=== PATIENT | female | born 1960 | race Caucasian/White ===

== ENCOUNTER 2021-11-27 17:06 | Observation (INO) | payer MEDICAID, OTHER ==
[~2021-11-27] VITALS: Ht 175 cm; Wt 90.3 kg
[2021-11-27 17:30] LABS: BASOPHILS # (AUTO) 0.1 10^3/uL (0.0-0.1); BASOPHILS % (AUTO) 1 % (0-10); EOSINOPHILS # (AUTO) 0.8 10^3/uL (0.0-0.3); EOSINOPHILS % (AUTO) 8 % (0-10); HEMATOCRIT 38 % (35-52); LYMPHOCYTES # (AUTO) 2.6 10^3/uL (1.0-4.0); LYMPHOCYTES % (AUTO) 27 % (12-44); MEAN CORPUSCULAR HEMOGLOBIN 29 pg (25-34); MEAN CORPUSCULAR HGB CONC 32 g/dL (32-36); MEAN CORPUSCULAR VOLUME 93 fL (80-99); MONOCYTES # (AUTO) 0.7 10^3/uL (0.0-1.0); MONOCYTES % (AUTO) 8 % (0-12); NEUTROPHILS # (AUTO) 5.5 10^3/uL (1.8-7.8); NEUTROPHILS % (AUTO) 57 % (42-75); PLATELET COUNT 304 10^3/uL (130-400); WHITE BLOOD COUNT 9.6 10^3/uL (4.3-11.0)
--- NOTE | 2021-11-27 17:30 | ED Neurological Problem ---
General Chief Complaint: Neuro-Stroke Like Symptoms Stated Complaint: TWITCHING/SLURRED SPEECH/HEAD PRESSURE History of Present Illness Date Seen by Provider: Nov 27, 2021 Time Seen by Provider: 17:18 Initial Comments 61-year-old female presents to the emergency department via private vehicle for right-sided arm tremor and tingling and leg tremors, tingling. She also endorses some difficulty speaking. Symptoms started at 10 AM yesterday. She woke up at 5:45 AM and was fine until 10 when she had an acute onset of numbness and tingling in her right arm and leg. She also noticed some blurred vision and difficulty speaking during that time. She denies any recent illness including fevers chills chest pain abdominal pain cough or changes in bowel bladder h abits. Throughout the day today she has had "twitches" diffusely mostly on her right side but sometimes on the left as well. She has had several falls related to this. She has had the twitching in the past but the numbness and tingling of her right arm and leg are seemingly new. She has never had the visual symptoms or speech issues in the past either. She has a history of PSVT and bigeminy, no history of atrial fibrillation. No history of strokes. (LANDY YAN DO) Allergies and Home Medications Allergies Coded Allergies: No Known Drug Allergies (Unverified , 11/27/21) Patient Home Medication List Home Medication List Reviewed: Yes (LANDY YAN DO) Aspirin (Aspirin EC) 81 Mg Tablet.dr, 81 MG PO DAILY Prescribed by: MARVIN NATION on 11/28/21 143 Atorvastatin Calcium (Atorvastatin Calcium) 80 Mg Tablet, 80 MG PO DAILY Prescribed by: MARVIN NATION on 11/28/21 143 Fluoxetine HCl (Fluoxetine HCl) 40 Mg Capsule, 80 MG PO DAILY, (Reported) Entered as Reported by: MARVIN NATION on 11/28/211434 Last Action: New Order Hydromorphone HCl (Hydromorphone HCl) 4 Mg Tablet, 4 MG PO Q6H PRN for PAIN- SEVERE (8-10), (Reported) Entered as Reported by: MARVIN NATION on 11/28/211434 Last Action: New Order Insulin Aspart (Novolog Flexpen) 100 Unit/Ml (3 Ml) Solution, 3 UNITS SQ AC Prescribed by: MARVIN NATION on 11/28/211434 Last Action: New Order Insulin Degludec (Tresiba) 100 Unit/Ml Vial, 32 UNIT SQ HS Prescribed by: MARVIN NATION on 11/28/211434 Last Action: New Order Review of Systems Review of Systems Constitutional: no symptoms reported Eyes: Blurred Vision Ears, Nose, Mouth, Throat: no symptoms reported Respiratory: no symptoms reported Cardiovascular: no symptoms reported Gastrointestinal: no symptoms reported Genitourinary: no symptoms reported Musculoskeletal: muscle twitching Skin: no symptoms reported Psychiatric/Neurological: Numbness, Tingling, Weakness Endocrine: No Symptoms Reported Hematologic/Lymphatic: No Symptoms Reported (LANDY YAN DO) Past Qaulkbi-Gyimrv-Ebtqsg Hx Patient Social History Tobacco Use?: No Use of E-Cig and/or Vaping dev: No Substance use?: No Alcohol Use?: No (LANDY YAN DO) Seasonal Allergies Seasonal Allergies: No (LANDY YAN DO) Family Medical History Reviewed Nursing Family Hx (LANDY YAN DO) No Pertinent Family Hx (LANDY YAN DO) Physical Exam Vital Signs Vital Signs - First Documented 11/27/21 17:11 Temp 36.6 Pulse 57 Resp 18 B/P (MAP) 112/77 (89) (NIKKI DORADO) Vital Signs Capillary Refill : (LANDY YAN DO) Height, Weight, BMI Height: '" Weight: lbs. oz. kg; BMI Method: General Appearance: WD/WN, no apparent distress HEENT: normal ENT inspection, TMs normal, pharynx normal Neck: non-tender, full range of motion, supple, normal inspection Respiratory: chest non-tender, lungs clear, normal breath sounds, no respiratory distress, no accessory muscle use Cardiovascular: regular rate, rhythm, no edema, no gallop, no JVD, no murmur Gastrointestinal: normal bowel sounds, non tender, soft, no organomegaly, no pulsatile mass Back: normal inspection, no CVA tenderness, no vertebral tenderness Extremities: normal range of motion, non-tender, normal inspection, no pedal edema, no calf tenderness Neurologic/Psychiatric: manager laboratory II-XII nml as tested, no motor/sensory deficits, alert, normal mood/affect, oriented x 3, other (Patient has a tremor of her right upper extremity and bilateral lower extremities.) Crainal Nerves: normal hearing, PERRL, other (Speech is slightly slowed but otherwise normal) Coordination/Gait: normal finger to nose, negative Romberg's sign Motor/Sensory: no motor deficit, no sensory deficit, no pronator drift Skin: normal color, warm/dry Lymphatic: no adenopathy (LANDY YAN DO) Stroke Onset of Symptoms Date of Onset of Symptoms: Nov 27, 2021 Time of Symptom Onset: 10:00 Onset of Symptoms: Yes (NIKKI DORADO) NIH Stroke Scale Assessment Select: Initial Level of Consciousness-Questions: 0=Answers both month/age (0), LOC Commands: 0=Performs both tasks (0), Gaze: Normal (0), Visual Bañuelos: 0=No visual loss (0), Facial Movement (Facial Paresis): 0=Normal symmetrical mnt (0), Motor Function-Arms Right: 1=Drift (1), Motor Function- Arms Left: 0=No drift (0), Motor Function-Legs Right: 1=Drift (1), Motor Function-Legs Left: 0=No drift (0), Limb Ataxia: 0=Absent (0), Sensory: 0=Normal:no loss (0), Best Language: 0=No aphasia (0), Dysarthria: 1=Mild to moderate loss (1), Extinction & Inattention: 0=No abnormality (0), Total: 3 Stroke Thrombolytic Exclusion Age 18 or Over: Yes Acute intenal hemorrhage: No History of CVA: No Uncontrolled Coagulation Defec: No Intracranial Hemorrhage: No Severe Hypertension: No GI or Bleed: No Subarachnoid Hemorrhage: No Intracranial Neoplasm/Aneurysm: No Oral Anticoagulants: No Surgery or Trauma: No Puncture of Non-Compressible V: No Recent CPR: No Diabetic Hemorrhagic Retinopat: No Organ Biopsy: No Recent Obstetric Delivery: No Glucose: No Significant Hepatic Dysfunctio: No NIH Stoke Scale >22: No Bacterial Endocarditis: No Pericarditis: No Improving Symptoms: No Platelets: No TPA Contraindication: No (NIKKI DORADO) IV - TPa Received IV - TPa Procedure Performed?: No (NIKKI DORADO) Progress/Results/Core Measures Results/Orders Lab Results Laboratory Tests Test 11/27/21 17:20 11/27/21 17:33 Range/Units White Blood Count 9.6 4.3-11.0 10^3/uL Red Blood Count 4.08 3.80-5.11 10^6/uL Hemoglobin 12.0 11.5-16.0 g/dL Hematocrit 38 35-52 % Mean Corpuscular Volume 93 80-99 fL Mean Corpuscular Hemoglobin 29 25-34 pg Mean Corpuscular Hemoglobin Concent 32 32-36 g/dL Red Cell Distribution Width 13.6 10.0-14.5 % Platelet Count 304 130-400 10^3/uL Mean Platelet Volume 10.0 9.0-12.2 fL Immature Granulocyte % (Auto) 0 % Neutrophils (%) (Auto) 57 42-75 % Lymphocytes (%) (Auto) 27 12-44 % Monocytes (%) (Auto) 8 0-12 % Eosinophils (%) (Auto) 8 0-10 % Basophils (%) (Auto) 1 0-10 % Neutrophils # (Auto) 5.5 1.8-7.8 10^3/uL Lymphocytes # (Auto) 2.6 1.0-4.0 10^3/uL Monocytes # (Auto) 0.7 0.0-1.0 10^3/uL Eosinophils # (Auto) 0.8 H 0.0-0.3 10^3/uL Basophils # (Auto) 0.1 0.0-0.1 10^3/uL Immature Granulocyte # (Auto) 0.0 0.0-0.1 10^3/uL Prothrombin Time 12.6 12.2-14.7 SEC INR Comment 0.9 0.8-1.4 Activated Partial Thromboplast Time 32 24-35 SEC Sodium Level 138 135-145 MMOL/L Potassium Level 3.9 3.6-5.0 MMOL/L Chloride Level 101 98-107 MMOL/L Carbon Dioxide Level 25 21-32 MMOL/L Anion Gap 12 5-14 MMOL/L Blood Urea Nitrogen 37 H 7-18 MG/DL Creatinine 1.60 H 0.60-1.30 MG/DL Estimat Glomerular Filtration Rate 37 BUN/Creatinine Ratio 23 Glucose Level 112 H 70-105 MG/DL Calcium Level 9.6 8.5-10.1 MG/DL Corrected Calcium 9.7 8.5-10.1 MG/DL Total Bilirubin 0.4 0.1-1.0 MG/DL Aspartate Amino Transf (AST/SGOT) 19 5-34 U/L Alanine Aminotransferase (ALT/SGPT) 16 0-55 U/L Alkaline Phosphatase 88 40-136 U/L Total Protein 6.8 6.4-8.2 GM/DL Albumin 3.9 3.2-4.5 GM/DL Glucometer 118 H 70-110 MG/DL (NIKKI DORADO) My Orders Orders - NIKKI DORADO Ct Angio Head/Neck (11/27/21 20:47) Ed Iv/Invasive Line Start (11/27/21 20:48) Ns Iv 500 Ml (Sodium Chloride 0.9%) (11/27/21 21:00) Iohexol Injection (Omnipaque 350 Mg/Ml 1 (11/27/21 21:00) Ns (Ivpb) (Sodium Chloride 0.9% Ivpb Bag (11/27/21 21:00) Iohexol Injection (Omnipaque 350 Mg/Ml 1 (11/27/21 21:15) Received Contrast (Hold Metformin- Contr (11/27/21 21:15) Ns (Ivpb) (Sodium Chloride 0.9% Ivpb Bag (11/27/21 21:15) Clopidogrel Tablet (Plavix Tablet) (11/27/21 21:30) Aspirin Chewable Tablet (Baby Aspirin Ch (11/27/21 21:30) (NIKKI DORADO) Medications Given in ED Current Medications Medications Dose Ordered Sig/Mino Route Start Time Stop Time Status Last Admin Dose Admin Aspirin 324 mg ONCE ONCE PO 11/27/21 21:30 11/27/21 21:31 DC 11/27/21 21:31 324 MG Clopidogrel Bisulfate 300 mg ONCE ONCE PO 11/27/21 21:30 11/27/21 21:31 DC 11/27/21 21:31 300 MG Sodium Chloride 500 ml @ 0 mls/hr Q0M ONCE IV 11/27/21 21:00 11/27/21 21:01 DC 11/27/21 21:31 0 MLS/HR (NIKKI DORADO) Vital Signs/I&O 11/27/21 17:11 Temp 36.6 Pulse 57 Resp 18 B/P (MAP) 112/77 (89) (NIKKI DORADO) Progress Progress Note #1: Time: 20:36 Progress Note Assumed care of the patient at shift change. I agree with above documented history and physical exam. The patient still having a slight residual slurred her speech. Her symptoms are improving mildly. NIH was 3 points. Progress Note #2: Time: 20:45 Progress Note Discussed the case with Dr. Fernandes and she agrees that the patient is well outside the window for tPA. She would recommend a CT angiogram just to be safe although she does not feel given the NIH it is very likely that the patient would have a large vessel occlusion. She would recommend loading the patient with 300 mg of Plavix and aspirin 325 mg. Tomorrow she would do 21 days of regular strength aspirin and 81 mg aspirin. After that just monotherapy with as pirin. (NIKKI DORADO) Comment Sinus bradycardia 56 bpm. Normal intervals. Normal axis. No ST or T wave abnormalities. No ectopy. No STEMI. (LANDY YAN DO) Diagnostic Imaging Diagonstic Imaging: CT Plain Films/CT/US/NM/MRI: head Comments [facility]. [place], [place] NAME: DEEPA COOPER MED REC#: [id number] PT STATUS: REG ER : 1960 PHYSICIAN: LANDY YAN DO ADMIT DATE: 11/27/21/ER Signed Date of Exam:11/27/21 CT HEAD WO-R/O STROKE EXAMINATION: CT brain without contrast from 11/27/2021. TECHNIQUE: Multiple contiguous axial images were obtained through the brain without the use of intravenous contrast. Auto Exposure Controls were utilized during the CT exam to meet ALARA standards for radiation dose reduction. INDICATION: Sudden onset of slurred speech and malaise. FINDINGS: There is atrophy, predominantly within the frontal regions bilaterally. No acute hemorrhage or infarct is seen with no mass, mass effect, or midline shift. There is no hydrocephalus. The calvarium appears intact. Paranasal sinuses and mastoid air cells are clear. IMPRESSION: 1. Atrophy, predominantly in the frontal regions with no acute hemorrhage or infarct appreciated. Dictated by: Dictated on workstation # [id number] Dict: 11/27/21 1748 Trans: 11/27/211805 AS6 Interpreted by: RILEY CALDERON MD Electronically signed by: RILEY CALDERON MD 11/27/211805 Reviewed: Reviewed by Me Diagonstic Imaging: Xray Plain Films/CT/US/NM/MRI: chest Comments [facility] [place] NAME: DEEPA COOPER MED REC#: [id number] PT STATUS: REG ER : 1960 PHYSICIAN: LANDY YAN DO ADMIT DATE: 11/27/21/ER Signed Date of Exam:11/27/21 CHEST 1 VIEW, AP/PA ONLY INDICATION: Stroke protocol. Speech slurred. Malaise. EXAMINATION: Chest 11/27/2021 FINDINGS: The cardiomediastinal silhouette is unremarkable. The pulmonary vasculature is within normal limits. The lungs and pleural spaces are clear. IMPRESSION: No evidence of an acute cardiopulmonary process. Dictated by: Dictated on workstation # [id number] Dict: 11/27/21 175 Trans: 11/27/211805 CVB Interpreted by: RILEY CALDERON MD Electronically signed by: RILEY CALDERON MD 11/27/211805 Diagonstic Imaging: CT (a) Plain Films/CT/US/NM/MRI: head (neck) Comments [facility] [place] NAME: DEEPA COOPER MED REC#: [id number] PT STATUS: REG ER : 1960 PHYSICIAN: LANDY YAN DO ADMIT DATE: 11/27/21/ER Signed Date of Exam:11/27/21 CT HEAD WO-R/O STROKE EXAMINATION: CT brain without contrast from 11/27/2021. TECHNIQUE: Multiple contiguous axial images were obtained through the brain without the use of intravenous contrast. Auto Exposure Controls were utilized during the CT exam to meet ALARA standards for radiation dose reduction. INDICATION: Sudden onset of slurred speech and malaise. FINDINGS: There is atrophy, predominantly within the frontal regions bilaterally. No acute hemorrhage or infarct is seen with no mass, mass effect, or midline shift. There is no hydrocephalus. The calvarium appears intact. Paranasal sinuses and mastoid air cells are clear. IMPRESSION: 1. Atrophy, predominantly in the frontal regions with no acute hemorrhage or infarct appreciated. Dictated by: Dictated on workstation # [id number] Dict: 11/27/21 1748 Trans: 11/27/211805 AS6 [id number] Interpreted by: RILEY CALDERON MD Electronically signed by: RILEY CALDERON MD 11/27/211805 Reviewed: Reviewed by Me (NIKKI DORADO) Departure Communication (Admissions) Time/Spoke to Admitting Phy: 21:40 Discussed the case with Dr. Banegas who agrees to observe the patient on med telemetry (NIKKI DORADO) Impression Primary Impression: CVA (cerebral vascular accident) Qualified Codes: I63.9 - Cerebral infarction, unspecified Disposition: ADMITTED INPATIENT Condition: Stable Admissions Decision to Admit Reason: Admit from ER (General) Decision to Admit/Date: Nov 27, 2021 Time/Decision to Admit Time: 21:30 (NIKKI DORADO) Departure-Patient Inst. Scripts Aspirin (Aspirin EC) 81 Mg Tablet. 81 MG PO DAILY, #30 TAB Prov: MARVIN NATION DO 11/28/21 Atorvastatin Calcium (Atorvastatin Calcium) 80 Mg Tablet 80 MG PO DAILY, #30 TAB Prov: MARVIN NATION DO 11/28/21 Insulin Aspart (Novolog Flexpen) 100 Unit/Ml (3 Ml) Solution 3 UNITS SQ AC for 30 Days, EA Prov: MARVIN NATION DO 11/28/21 Insulin Degludec (Tresiba) 100 Unit/Ml Vial 32 UNIT SQ HS for 30 Days, EA Prov: MARVIN NATION DO 11/28/21 LANDY YAN DO Nov 27, 2021 17:30 NIKKI DORADO Nov 27, 2021 20:26
[2021-11-27 17:45] LABS: ALBUMIN 3.9 GM/DL (3.2-4.5); INR 0.9 (0.8-1.4); POTASSIUM 3.9 MMOL/L (3.6-5.0); PROTHROMBIN TIME PATIENT 12.6 SEC (12.2-14.7)
[2021-11-27 17:46] LABS: CALCIUM 9.6 MG/DL (8.5-10.1)
[2021-11-27 17:47] LABS: TOTAL PROTEIN 6.8 GM/DL (6.4-8.2)
[2021-11-27 17:49] LABS: BILIRUBIN,TOTAL 0.4 MG/DL (0.1-1.0)
[2021-11-27 17:51] LABS: CREATININE SERUM 1.6 MG/DL (0.60-1.30)
--- NOTE | 2021-11-27 17:54 | Diagnostic Imaging Report ---
EXAMINATION: CT brain without contrast from 11/27/2021. TECHNIQUE: Multiple contiguous axial images were obtained through the brain without the use of intravenous contrast. Auto Exposure Controls were utilized during the CT exam to meet ALARA standards for radiation dose reduction. INDICATION: Sudden onset of slurred speech and malaise. FINDINGS: There is atrophy, predominantly within the frontal regions bilaterally. No acute hemorrhage or infarct is seen with no mass, mass effect, or midline shift. There is no hydrocephalus. The calvarium appears intact. Paranasal sinuses and mastoid air cells are clear. IMPRESSION: 1. Atrophy, predominantly in the frontal regions with no acute hemorrhage or infarct appreciated. Dictated by: Dictated on workstation # [id number]
--- NOTE | 2021-11-27 17:57 | Diagnostic Imaging Report ---
INDICATION: Stroke protocol. Speech slurred. Malaise. EXAMINATION: Chest 11/27/2021 FINDINGS: The cardiomediastinal silhouette is unremarkable. The pulmonary vasculature is within normal limits. The lungs and pleural spaces are clear. IMPRESSION: No evidence of an acute cardiopulmonary process. Dictated by: Dictated on workstation # [id number]
[2021-11-27] MEDS ORDERED: NS 100 ML (IVPB) BAG IV ONE ×2 (21:00→21:15)
[2021-11-27] MEDS ORDERED: NS IV 500 ML 500 ML IV ONE (21:00)
[2021-11-27] MEDS ORDERED: IOHEXOL 350 MG/ML 100 ML (OMNIPAQUE 350) VIAL IV ONE ×2 (21:00→21:15)
[2021-11-27] MEDS ORDERED: HOLD METFORMIN - RECEIVED CONTRAST 20 ML VIAL IV SCH (21:15)
[2021-11-27] MEDS ORDERED: ASPIRIN 81 MG CHEW (CHILDREN'S ASA) PO ONE (21:30)
[2021-11-27] MEDS ORDERED: CLOPIDOGREL 300 MG (PLAVIX) TABLET PO ONE (21:30)
--- NOTE | 2021-11-27 21:57 | Diagnostic Imaging Report ---
Procedure: CT angiography of the head and CT angiography of the neck with and without contrast. Technique: Contiguous noncontrast images were obtained from the skull base through the vertex. After intravenous contrast administration, helical CT angiography of the neck was performed. Source data was reformatted into 3D MIP projections. Delayed post contrast acquisition was also obtained. Auto Exposure Controls were utilized during the CT exam to meet ALARA standards for radiation dose reduction. Date: November 27, 2021. Indication: 61-year-old female, twitching, slurred speech. Comparison: CT head without contrast November 27, 2021. Findings: The left common carotid artery is patent. The left internal carotid artery has a beaded and tortuous appearance at its proximal aspect. There is no high-grade stenosis of the left internal carotid artery. The left internal carotid artery is patent. The left middle cerebral artery is patent. The left anterior cerebral artery is patent. The right anterior cerebral artery is patent. The right middle cerebral artery is patent. The right internal carotid artery is patent. The right common carotid artery is patent. Left vertebral artery is conventional in origin. There is a somewhat beaded and irregular appearance of the left vertebral artery as it exits the foramen transversarium. The left vertebral artery is patent. The left posterior cerebral artery is patent. The right posterior cerebral artery is patent. The right vertebral artery is patent. The right vertebral artery is conventional in origin. The visualized portions of the lungs are clear. There is no identified abnormal intracranial enhancement. There is no evidence of a venous sinus thrombosis. There are multilevel degenerative changes of the spine. Impression: 1. No identified arterial head or neck large vessel occlusion. 2. Beaded and tortuous appearance of the left proximal internal carotid artery and also of the left vertebral artery as it exits the foramen transversarium. This could be seen with process such as fibromuscular dysplasia. Dictated by: Dictated on workstation # [id number]
[2021-11-28 04:00] VITALS: BP 115/69
[2021-11-28 05:42] VITALS: BP 115/69
[2021-11-28] MEDS ORDERED: ACETAMINOPHEN 325 MG TABLET PO PRN (07:00)
[2021-11-28] MEDS ORDERED: ONDANSETRON 4 MG/2 ML (SDV) Z0FRAN IVP PRN (07:00)
[2021-11-28] MEDS ORDERED: CATHETER FLUSH 10 ML SYR IV PRN (07:00)
[2021-11-28 07:47] LABS: BASOPHILS # (AUTO) 0.1 10^3/uL (0.0-0.1); BASOPHILS % (AUTO) 1 % (0-10); EOSINOPHILS # (AUTO) 0.7 10^3/uL (0.0-0.3); EOSINOPHILS % (AUTO) 9 % (0-10); HEMATOCRIT 38 % (35-52); HEMOGLOBIN 12.3 g/dL (11.5-16.0); LYMPHOCYTES # (AUTO) 2.1 10^3/uL (1.0-4.0); LYMPHOCYTES % (AUTO) 28 % (12-44); MEAN CORPUSCULAR HEMOGLOBIN 30 pg (25-34); MEAN CORPUSCULAR HGB CONC 32 g/dL (32-36); MEAN CORPUSCULAR VOLUME 93 fL (80-99); MEAN PLATELET VOLUME 10.2 fL (9.0-12.2); MONOCYTES # (AUTO) 0.6 10^3/uL (0.0-1.0); MONOCYTES % (AUTO) 8 % (0-12); NEUTROPHILS % (AUTO) 54 % (42-75); PLATELET COUNT 263 10^3/uL (130-400); WHITE BLOOD COUNT 7.4 10^3/uL (4.3-11.0)
[2021-11-28 08:00] VITALS: BP 158/73
[2021-11-28 08:05] LABS: CALCIUM 9.5 MG/DL (8.5-10.1); CREATININE SERUM 0.91 MG/DL (0.60-1.30); POTASSIUM 3.7 MMOL/L (3.6-5.0)
[2021-11-28] MEDS ORDERED: DEXTROSE 50% 50 ML (IMS) SYR ONE (08:15)
[2021-11-28] MEDS ORDERED: DEXTROSE 50% 50 ML (IMS) SYR IV ONE ×2 (08:30→11:15)
[2021-11-28] MEDS ORDERED: DOCUSATE SODIUM 100 MG (COLACE) CAP PO SCH (09:00)
[2021-11-28] MEDS ORDERED: ASPIRIN E.C. 81 MG (ECOTRIN) TAB PO SCH (09:00)
[2021-11-28] MEDS ORDERED: ASPIRIN 325 MG (5 GR) TABLET PO SCH (09:00)
--- NOTE | 2021-11-28 10:36 | Speech Therapy Progress Note ---
Therapy Progress Note Speech pathology received the consultation, reviewed the patient's medical chart and contacted the RN. At this time, the patient is NPO. Per scanned order, the patient should remain NPO pending "passing Dysphagia Screening." The RN stated he was not aware if the RN Dysphagia Screening had been completed but does not believe one was documented. If the patient fails the RN Dysphagia Screen or the physician has requested a formal clinical bedside swallowing evaluation, ST will proceed with oropharyngeal swallowing evaluation. The ST shared she will be present on the acute floor at approximately 1230 or later. RN verbalized comprehension. LANDRY PIERSON Nov 28, 2021 10:36
--- NOTE | 2021-11-28 10:43 | Physical Therapy Evaluation ---
PT Evaluation-General Medical Diagnosis Admission Date Nov 27, 2021 at 21:40 Medical Diagnosis: CVA Onset Date: Nov 27, 2021 Therapy Diagnosis Therapy Diagnosis: impaired mobility Precautions Precautions/Isolations: Standard Precautions Referral Physician: Makenzie Reason for Referral: Evaluation/Treatment Medical History Pertinent Medical History: DM Current History ER secondary to right side numbness/tingling and LE tremor/slurred speech Reviewed History: Yes Social History Home: Single Level Current Living Status: Spouse Entry Into Home: Stairs With Railing PT Steps Into Home: 4 PT Steps Inside Home: 3 Prior Prior Level of Function SCALE: Activities may be completed with or without assistive devices. 9-Xwfzqalajl-evraxkz completes the activity by him/herself with no assistance from a helper. 5-Set-up or Clean-up Assistance-helper sets up or cleans up; patient completes activity. [place] assists only prior to or following the activity. 4-Supervision or Touching Assistance-helper provides verbal cues and/or touching/steadying and/or contact guard assistance as patient completes activity. Assistance may be provided throughout the activity or intermittently. 3-Partial/Moderate Assistance-helper does LESS THAN HALF the effort. [place] lifts, holds or supports trunk or limbs, but provides less than half the effort. 2-Substantial/Maximal Assistance-helper does MORE THAN HALF the effort. [place] lifts or holds trunk or limbs and provides more than half the effort. 6-Fqclrxaff-teyvep does ALL the effort. Patient does none of the effort to complete the activity. Or, the assistance of 2 or more helpers is required for the patient to complete the activity. If activity was not attempted, code reason: 7-Patient Refused. 9-Not Applicable-not attempted and the patient did not perform the activity before the current illness, exacerbation or injury. 10-Not Attempted due to Environmental Limitations-(lack of equipment, weather restraints, etc.). 88-Not Attempted due to Medical Conditions or Safety Concerns. Bed Mobility: 6 Transfers (B,C,W/C): 6 Gait: 6 Stairs: 6 Indoor Mobility (Ambulation): Independent Stairs: Independent Prior Devices Use: Walker PT Evaluation-Current Subjective Patient was up independently in room upon PT arrival. Patient states, "I feel like I'm where I was before and I just want to go home." RN notified. Objective Patient Orientation: Normal For Age ROM/Strength ROM Lower Extremities bilateral LE WFL Strength Lower Extremities 4-/5 grossly bilateral LE all planes Integumentary/Posture Bowel Incontinence: No Bladder Incontinence: No Posture WFL Neuromuscular (Tone, Coordination, Reflexes) slightly diminished coordination due to inactivity and, per patient, multiple surgeries. Sensory Vision: Wears Glasses Hearing: Functional Transfers Lying to Sitting/Side of Bed(Q: 6 Sit to Stand (QC): 6 Chair/Tph-xv-Ujywa Xfer(QC): 6 Gait Mode of Locomotion: Walk Anticipated Mode of Locomotion: Walk Walk 10 feet (QC): 5 Walk 50 ft with 2 Turns(QC): 5 Walk 150 ft (QC): 5 Distance: 200' Gait Assistive Device: FWW Comments/Gait Description noted right LE slight lag (patient reports this is normal for her) Stairs #of Steps: 4 1 Step (curb) (QC): 4 4 Steps (QC): 4 Balance Sitting Static: Normal Sitting Dynamic: Normal Standing Static: Fair Standing Dynamic: Fair Assessment/Needs 61 y.o. female, is currently at [facility] with all gross motor skills and has declined continued PT intervention. Patient continues to state she want to go home. SW and RN notified. Rehab Potential: Fair PT Plan Treatment/Plan Treatment Plan: Discontinue PT Treatment Duration: Nov 28, 2021 Frequency: 1 time per week Estimated Hrs Per Day: .25 hour per day Patient and/or Family Agrees t: Yes Discharge Recommendations Therapy Discharge Recommendati: Home & Family Time/GCodes Time In: 1016 Time Out: 1030 Total Billed Treatment Time: 14 Total Billed Treatment 1 visit [facility] 14 min GEOVANNI WATERMAN PT Nov 28, 2021 10:43
[2021-11-28] MEDS ORDERED: inSUlin ASPART (NovoLOG) 1 UNIT/0.01 ML (CHARGE PER UNIT) SC SCH (11:00)
[2021-11-28] MEDS ORDERED: DEXTROSE 10% IV SOLUTION 1,000 ML IV SCH (11:30)
--- NOTE | 2021-11-28 11:57 | Occ Therapy Progress Note ---
Therapy Progress Note Pt up in recliner, upon OT arrival pt states "I want to go home". OT introduced self and purpose/benefits of OT. Pt verbalized understanding, but indicates she is at her PLOF, independent with toileting and dressing tasks. Per PT report, pt independent with mobility using FWW. Pt feels as though she is at PLOF and has no further concerns with self care tasks.OT informed pt if concerns arise, then to notify nurse and have new OT orders sent. No skilled OT services indicated at this time, d/c from OT. 1, visit [facility]IR[place] CONTRERAS OT Nov 28, 2021 11:57
[2021-11-28 12:00] VITALS: BP 143/79
--- NOTE | 2021-11-28 13:06 | Short Stay Summary-Hospitalist ---
LUIS FERNANDO REARDON 11/28/21 1306: History of Present Illness HPI/Chief Complaint Patient is a 61 y/o F with history of fibromyalgia and chronic pain, DM type 2, and arthritis who presents for some right sided weakness and tingling in her hands onset 1 day ago. Patient reports that she was at home when she suddenly felt some right sided weakness and was unable to keep her balance. She reports that tingling of the hands is something that happens often for her due to her chronic pain and carpal tunnel history. She also reports she has had extensive back surgery before and believes that may be contributing to her neurologic symptoms at present. CT Angio of the head showed no identified arterial head or neck large vessel occlusion as well as beaded and tortuous appearance of the left proximal internal carotid artery and also of the left vertebral artery as it exits the foramen transversarium. This could be seen with process such as fibromuscular dysplasia. Glucometer today showed some low blood sugars at 46, and 57 but patient states this happens often is somewhat normal for her. Patient denies any other complaints at this time. Source: patient Date Seen 11/28/21 Time Seen by a Provider: 12:58 Attending Physician No,Local Physician PCP Admitting Physician: Frances Banegas MD Attending Physician: Monica Howard DO Referring Physician Date of Admission Nov 27, 2021 at 21:40 Home Medications & Allergies Home Medications Reviewed patient Home Medication Reconciliation performed by pharmacy medication reconciliations optical engineering technician and/or nursing. Patients Allergies have been reviewed. Allergies Allergies Coded Allergies No Known Drug Allergies (Unverified11/27/21) Past Medical/Social/Family Hx Patient Social History Tobacco Use?: No Use of E-Cig and/or Vaping dev: No Substance use?: No Alcohol Use?: No Pt stated abuse/neglect: No Immunizations Up To Date Influenza Vaccine Up-to-Date: No; Not Current First/Initial COVID19 Vaccinat: 2020 Second COVID19 Vaccination Kaushal: 2020 Tetanus Booster (TDap): Less Than 5 Years Current Status status: No status: No Advance Directives: No Communicates: Verbally Primary Language: Swazi Preferred Spoken Language: Swazi Is interpretation needed?: No Sensory deficits: Vision impairment Implanted or Applied Medical D: None Review of Systems Constitutional: No chills, No fever; weakness EENTM: No hearing loss, No blurred vision Respiratory: cough; No short of breath Cardiovascular: No chest pain, No edema Gastrointestinal: No abdominal pain Musculoskeletal: back pain, joint pain, muscle twitching, muscle weakness Skin: No change in color, No change in hair/nails Psychiatric/Neurological: Denies Anxiety, Denies Depressed Physical Exam Physical Exam Vital Signs Vital Signs - First Documented 11/27/21 11/28/21 17:11 01:33 Temp 36.6 Pulse 57 Resp 18 B/P (MAP) 112/77 (89) Pulse Ox 94 O2 Delivery Room Air Capillary Refill : Height, Weight, BMI Height: '" Weight: lbs. oz. kg; 29.48 BMI Method: General Appearance: No Apparent Distress, WD/WN HEENT: PERRL/EOMI, Moist Mucous Membranes Neck: Non Tender, Supple Respiratory: Chest Non Tender, No Accessory Muscle Use, No Respiratory Distress Cardiovascular: No Edema, No JVD Gastrointestinal: Non Tender, Soft Rectal: Deferred Extremity: Non Tender, No Calf Tenderness Neurologic/Psychiatric: Alert, Oriented x3, Normal Mood/Affect, Motor Weakness Skin: Normal Color, Warm/Dry Lymphatic: No Adenopathy Results Results/Procedures Labs Laboratory Tests 11/27/21 17:20 11/28/21 07:37 Patient resulted labs reviewed. Short Stay Diagnosis Discharge Diagnosis-Short Stay Admission Diagnosis Motor Weakness Final Discharge Diagnosis 1. Motor Weakness 2. Hypoglycemia 3. Non-Insulin Dependent Diabetes Mellitus 4. Chronic Pain due to Fibromyalgia Conclusion Plan 1. Motor Weakness Was seen today by PT and OT, feels as though she is able to go home now. Will get echocardiogram and Carotid artery US to rule out CVA. Patient has a phobia of MRI so arrange for outpatient evaluation. 2. Hypoglycemia Continue home medications for glucose control. 3. Non-Insulin Dependent Diabetes Mellitus Continue diabetes management at home. 4. Chronic Pain due to Fibromyalgia Patient will be discharged home for further outpatient workup of her symptoms. Clinical Quality Measures Stroke: Date of last known well: Nov 27, 2021 Time of last known well: 10:00 MONICA HOWARD DO 11/29/21 0617: History of Present Illness HPI/Chief Complaint CC: Right sided weakness HPI: This is a 61 yr old female who presented with right sided weakness. She was found to have findings consistent and concerning for some sort of neurological deficit. She doesn't want to get an MRI today because of severe claustrophobia even with sedation offered. Echocardiogram and carotid ultrasound will be completed and she will have close follow up with the outpatient setting since all of her symptoms have resolved. She does have a history of spine disease and likely this is a neurological deficit due to spine disease. Source: patient Past Medical/Social/Family Hx Patient Social History Marrital Status: Smoking Status: Current Everyday Smoker Review of Systems Constitutional: see HPI Physical Exam Physical Exam General Appearance: No Apparent Distress, WD/WN Eyes: Bilateral Eye Normal Inspection, Bilateral Eye PERRL HEENT: PERRL/EOMI, TMs Normal, Normal ENT Inspection, Pharynx Normal Neck: Full Range of Motion, Normal Inspection, Non Tender, Supple, Carotid Bruit Respiratory: Chest Non Tender, Lungs Clear, Normal Breath Sounds, No Accessory Muscle Use, No Respiratory Distress Cardiovascular: Regular Rate, Rhythm, No Edema, No Gallop, No JVD, No Murmur, Normal Peripheral Pulses Gastrointestinal: Normal Bowel Sounds, No Organomegaly, No Pulsatile Mass, Non Tender, Soft Back: Normal Inspection, No CVA Tenderness, No Vertebral Tenderness Extremity: Normal Capillary Refill, Normal Inspection, Normal Range of Motion, Non Tender, No Calf Tenderness, No Pedal Edema Neurologic/Psychiatric: Alert, Oriented x3, No Motor/Sensory Deficits, Normal Mood/Affect Skin: Normal Color, Warm/Dry Lymphatic: No Adenopathy Short Stay Diagnosis Discharge Diagnosis-Short Stay Admission Diagnosis Neuro deficit now resolved Final Discharge Diagnosis Neuro deficit now resolved Conclusion Plan Declines MRI Reviewed ECHO and carotid Supervisory-Addendum Brief Verification & Attestation Participated in pt care: history, MDM, physical Personally performed: exam, history, MDM, supervision of care Care discussed with: Medical Student Procedures: n/a Results interpretation: Verified all documentation Verification and Attestation of Medical Student E/M Service A medical student performed and documented this service in my presence. I reviewed and verified all information documented by the medical student and made modifications to such information, when appropriate. I personally performed the physical exam and medical decision making. Monica Howard, Nov 29, 2021,06:16 LUIS FERNANDO REARDON Nov 28, 2021 13:06 MONICA HOWARD DO Nov 29, 2021 06:17
--- NOTE | 2021-11-28 13:57 | Speech Therapy Progress Note ---
Therapy Progress Note Speech pathology received the consultation, reviewed the chart, and presented to the room at 1325. The patient stated her oropharyngeal swallowing, cognition, speech, and language are currently at baseline and does not report any difficulties or concerns at this time. Per patient, "I always take small sips but that's always been what I've done." The patient independently consumed drinks (straw) of thin liquid for the clinician without overt s/s of suspected aspiration demonstrated. The patient was encouraged to monitor her symptoms and contact staff with any changes to the above areas. The patient verbalized comprehension. ST to sign off of services at this time. 7 minutes (no charge) LANDRY PIERSON Nov 28, 2021 13:57
[2021-11-28] MEDS ORDERED: CATHETER FLUSH 10 ML SYR IV SCH (14:00)
[2021-11-28] MEDS ORDERED: INSU100I14 SQ (14:35)
[2021-11-28] MEDS ORDERED: INSU100V37 SQ (14:35)
[2021-11-28] MEDS ORDERED: FLUO40CA PO (14:35)
[2021-11-28] MEDS ORDERED: HYDR4TAB PO (14:35)
[2021-11-28] MEDS ORDERED: ASPI-1238 PO (14:36)
[2021-11-28] MEDS ORDERED: ATOR80TA76 PO (14:36)
[2021-11-28 15:50] VITALS: BP 143/79
--- NOTE | 2021-11-28 16:17 | Diagnostic Imaging Report ---
PROCEDURE: US carotid duplex, bilateral. TECHNIQUE: Multiple real-time grayscale images were obtained over the carotid arteries in various projections, bilaterally. Additional spectral analysis and color Doppler duplex images were also obtained. INDICATION: CVA Parameters based on the consensus panel Caballero-Scale and Doppler ultrasound criteria published January 2003, Radiology, Volume 229. DOPPLER (peak systolic velocity M/S Right Left CCA .90 .82 ICA Proximal .54 .62 ICA Mid .99 1.24 ICA Distal 1.17 .66 RATIO 1.30 1.51 ECA 1.29 .68 VERT .46 .58 There is plaque seen within the bilateral carotid bulbs and bifurcations. Waveforms are normal. Normal antegrade flow within both vertebral arteries. IMPRESSION: Less than 50% stenosis of the bilateral internal carotid arteries by velocity and ratio criteria. Dictated by: Dictated on workstation # [id number]
== END 2021-11-28 14:32 | disposition home health service (06) ==
LOC: ER 17:11 → 4TH 21:40
PROVIDERS: ADMIT Family Medicine; ATTEND Internal Medicine
DX: M62.81 Muscle weakness (generalized) (principal); E11.649 Type 2 diabetes mellitus with hypoglycemia without coma; G89.29 Other chronic pain; M79.7 Fibromyalgia; I63.9 Cerebral infarction, unspecified; Z79.4 Long term (current) use of insulin; Z79.899 Other long term (current) drug therapy
CPT/HCPCS: 70450; 70496; 70498; 71045; 80048; 80053; 80061; 82947 ×2; 85025 ×2; 85610; 85730; 93005; 93041; 93306; 93880; 96375; 97162; 99284; G0378; 36415

== ENCOUNTER → 2021-12-17 | Outpatient (CLI) | payer MEDICARE, OTHER ==
[~2021-12-17] MED LIST: ASPI-1238 PO; ATOR80TA76 PO; FLUO40CA PO; HYDR4TAB PO; INSU100I14 SQ; INSU100V37 SQ
--- NOTE | 2021-12-17 13:01 | Diagnostic Imaging Report ---
Clinical indication: Patient with transient cerebral ischemic attack. EXAM: Axial CT scan of the brain performed without IV contrast with sagittal and coronal reformatted images. Auto Exposure Controls were utilized during the CT exam to meet ALARA standards for radiation dose reduction. COMPARISON: Head CT without contrast and CT angiogram of head/neck dated 11/27/2021.. FINDINGS: There is no evidence of acute cerebral infarct, intracranial hemorrhage, or gross mass effect. Stable brain parenchymal volume loss involving the frontal lobes. The brain parenchymal volume appears appropriate for patient's age. There is normal franco-white matter distinction. There is no significant midline shift or herniation. There is no evidence of hydrocephalus. The basal cisterns are unremarkable. The skull, extracranial soft tissue, and orbits are unremarkable. The paranasal sinuses are unremarkable. Temporal bones show no significant abnormality. IMPRESSION: Stable CT scan of the brain with no evidence of acute intracranial process. Dictated by: Dictated on workstation # [id number]
== END ==
LOC: RAD 12:45
PROVIDERS: ATTEND Internal Medicine Cardiovascular Disease
DX: G45.9 Transient cerebral ischemic attack, unspecified (principal)
CPT/HCPCS: 70450

== ENCOUNTER → 2023-01-27 | Day surgery (SDC) | payer MEDICARE ==
[~2023-01-27] VITALS: Ht 170.2 cm; Wt 71.6 kg
[~2023-01-27] MED LIST changes: +LIDOCAINE 1% INJ 20 ML VIAL INJ ONE
--- NOTE | 2023-01-27 11:48 | Implantation of Loop Monitor ---
Implant of Loop Monitior IMPLANTATION OF LOOP MONITOR REPORT DATE OF PROCEDURE: 01/27/23 PREOP DIAGNOSIS: Paroxysmal atrial fibrillation POSTOP DIAGNOSIS: Paroxysmal atrial fibrillation PROCEDURE DETAILS: The patient is a 62 female with history of paroxysmal atrial fibrillation requiring long-term surveillance. Therefore implantable loop recorder was discussed and agreed with the patient. Informed consent was taken. All risks and complications were discussed at length. The patient was draped and prepped in the usual sterile fashion. Local anesthesia was lidocaine, which was given in the substernal area close to the 4th intercostal space. Loop monitor [employer] with serial number [id number] was implanted according to the protocol. Steri- Strips were placed at the end of the procedure. There were no complications and the patient tolerated the procedure well. ANESTHESIA: Local anesthesia with lidocaine. COMPLICATIONS: None CONTRAST/FLUOROSCOPY: None CONCLUSION: Successful implantation of loop monitor with no complication FINAL DIAGNOSIS: Paroxysmal atrial fibrillation Paroxysmal atrial tachycardia Palpitation Hypertension ZENA BROWN MD Jan 27, 2023 11:48
== END | disposition home or self-care (01) ==
LOC: CATH 10:50 → CARD 10:50 → EDSTATUS 02-04 13:30
PROVIDERS: ATTEND Internal Medicine Cardiovascular Disease
DX: I48.0 Paroxysmal atrial fibrillation (principal); I25.10 Atherosclerotic heart disease of native coronary artery without angina pectoris; I47.10 Supraventricular tachycardia, unspecified; I10 Essential (primary) hypertension; E78.2 Mixed hyperlipidemia; I65.23 Occlusion and stenosis of bilateral carotid arteries; E11.9 Type 2 diabetes mellitus without complications; E03.9 Hypothyroidism, unspecified; E66.9 Obesity, unspecified; Z68.24 Body mass index [BMI] 24.0-24.9, adult; Z86.73 Personal history of transient ischemic attack (TIA), and cerebral infarction without residual deficits; Z79.82 Long term (current) use of aspirin; Z79.899 Other long term (current) drug therapy; Z79.84 Long term (current) use of oral hypoglycemic drugs; Z79.890 Hormone replacement therapy; Z79.4 Long term (current) use of insulin
CPT/HCPCS: 33285; C1764

== ENCOUNTER 2023-02-24 15:50 | Outpatient (CLI) | payer MEDICARE ==
[~2023-02-24] VITALS: Ht 170.2 cm; Wt 76.0 kg
[~2023-02-24 15:50] MED LIST changes: -LIDOCAINE 1% INJ 20 ML VIAL INJ ONE
[2023-02-24] MEDS ORDERED: MELO15TA39 PO (17:55)
[2023-02-24] MEDS ORDERED: METF-478 PO (17:55)
[2023-02-24] MEDS ORDERED: QUET100T PO (17:55)
[2023-02-24] MEDS ORDERED: LISI20TA26 PO (17:55)
[2023-02-24] MEDS ORDERED: INSU100V6 SQ (17:55)
[2023-02-24] MEDS ORDERED: PREG100C PO (17:55)
[2023-02-24] MEDS ORDERED: DULA4.5P SQ (17:55)
[2023-02-24] MEDS ORDERED: ONDA-106 PO (17:55)
[2023-02-24] MEDS ORDERED: ACET325T49 PO (17:55)
[2023-02-24] MEDS ORDERED: LEVO75CA5 PO (17:55)
[2023-02-24] MEDS ORDERED: APIX5TAB PO (17:55)
[2023-02-24] MEDS ORDERED: ORPH100T3 PO (17:55)
[2023-02-24] MEDS ORDERED: GLIM1TAB4 PO (17:55)
[2023-02-24] MEDS ORDERED: LOVA40TA2 PO (17:55)
[2023-02-24] MEDS ORDERED: METO50TA7 PO (17:55)
[2023-02-25] MEDS ORDERED: LNZ600T PO (18:33)
[2023-02-25] MEDS ORDERED: FLUC100T PO (18:33)
== END 2023-02-24 18:23 | disposition home or self-care (01) ==
LOC: PREOP 15:50
PROVIDERS: ATTEND Surgery
DX: Z01.818 Encounter for other preprocedural examination (principal)

== ENCOUNTER 2023-02-25 12:59 | Day surgery (SDC) | payer MEDICARE ==
[~2023-02-25] VITALS: Ht 170.2 cm; Wt 76.0 kg
[2023-02-25] VITALS (12 sets, daily range): BP systolic 116–158; BP diastolic 54–90
[~2023-02-25 12:59] MED LIST changes: +ACET325T49 PO; +APIX5TAB PO; +DULA4.5P SQ; +GLIM1TAB4 PO; +INSU100V6 SQ; +LEVO75CA5 PO; +LISI20TA26 PO; +LOVA40TA2 PO; +MELO15TA39 PO; +METF-478 PO; +METO50TA7 PO; +ONDA-106 PO; +ORPH100T3 PO; +PREG100C PO; +QUET100T PO
[2023-02-25] MEDS ORDERED: CLINDAMYCIN 600 MG/50 ML IVPB 50 ML IV NR (13:15)
--- NOTE | 2023-02-25 13:17 | Progress Note-Pre Operative ---
Pre-Operative Progress Note Date H&P Reviewed: Feb 25, 2023 Time H&P Reviewed: 13:15 History & Physical: H&P Reviewed, Patient Examed, No changes noted Pre-Operative Diagnosis: Left elbow complex abscess SUBHASH ALEJANDRO APRN Feb 25, 2023 13:16
--- NOTE | 2023-02-25 13:20 | Discharge Inst-Surgical ---
D/C Lap Instructions-KIDO Reconcile Patient Problems Problems Reviewed?: Yes New, Converted, or Re-Newed RX: Other Follow Up Appt in 2 weeks Activity as tolerated No driving for 24 hours No driving while on pain medications Regular Diet Symptoms to Report: Fever over 101 degree F, Nausea/Vomiting Infection Signs and Symptoms to report: Increased redness, Foul odor of wound, Increased drainage Bathing instructions: May shower Operative Area Clean/Dry; Keep incision clean/dry If any problems/questions: Contact your physician or go to Emergency Room SUBHASH ALEJANDRO APRN Feb 25, 2023 13:20
[2023-02-25] MEDS ORDERED: ONDANSETRON INJECTION 4 MG/2 ML (SDV) IVP PRN ×2 (13:30→17:00)
[2023-02-25] MEDS ORDERED: ACETAMINOPHEN 325 MG TABLET PO PRN (13:30)
[2023-02-25] MEDS ORDERED: fentaNYL INJECTION 100 MCG/2 ML VIAL IVP PRN (13:30)
[2023-02-25] MEDS ORDERED: HYDROmorphone 2 MG TABLET PO PRN (13:30)
[2023-02-25] MEDS ORDERED: LIDOCAINE 2% w/EPI 1:100,000 20 ML VIAL ONE ×2 (13:36→15:45)
[2023-02-25] MEDS ORDERED: CLINDAMYCIN 600 MG/50 ML IVPB 50 ML IV ONE (14:00)
[2023-02-25] MEDS ORDERED: MIDAZOLAM INJ 2 MG/2 ML VIAL IVP ONE (14:00)
[2023-02-25] MEDS ORDERED: MIDAZOLAM INJ 2 MG/2 ML VIAL ONE ×2 (14:01→14:37)
[2023-02-25] MEDS ORDERED: LACTATED RINGERS 1,000 ML 1,000 ML IV PRN (14:15)
[2023-02-25] MEDS ORDERED: proPOfol INJECTION 200 MG/20 ML VIAL IV ONE (14:37)
[2023-02-25] MEDS ORDERED: LIDOCAINE PF 2% 5 ML VIAL ONE (14:37)
[2023-02-25] MEDS ORDERED: fentaNYL INJECTION 100 MCG/2 ML VIAL ONE ×2 (14:37→17:35)
[2023-02-25] MEDS ORDERED: PHENYLEPHRINE 100 MCG/ML 10 ML (ANESTHESIA) SYR ONE ×2 (16:19→16:34)
[2023-02-25] MEDS ORDERED: ONDANSETRON INJECTION 4 MG/2 ML (SDV) ONE ×2 (16:35→17:19)
[2023-02-25] MEDS ORDERED: SEVOFLURANE (ULTANE) 15 ML INHAL SOLN ONE (16:35)
--- NOTE | 2023-02-25 16:57 | Anesthesia-General Post-Op ---
General Patient Condition Mental Status/LOC: Same as Preop Cardiovascular: Satisfactory Nausea/Vomiting: Absent Respiratory: Satisfactory Pain: Controlled Complications: Absent Post Op Complications Complications None Follow Up Care/Instructions Patient Instructions None needed. Anesthesia/Patient Condition Patient Condition Patient is doing well, no complaints, stable vital signs, no apparent adverse anesthesia problems. No complications reported per nursing. MONET DELUCA CRNA Feb 25, 2023 16:57
--- NOTE | 2023-02-25 16:59 | Progress Note-Post Operative ---
Post-Operative Progess Note Surgeon (s)/Director Of Career Services (s) Surgeon GINGER SHAH MD Director Of Career Services: iona sams CIVIL ENGINEERING PROJECT DESIGNER Pre-Operative Diagnosis Left elbow complex abscess Post-Operative Diagnosis same, subfascial with septic arthrosis. Procedure & Operative Findings Date of Procedure 02/25/23 Procedure Performed/Findings incision and drainage and debridement left deep complex abscess ([id number]). Anesthesia Type general LMA Estimated Blood Loss Estimated blood loss (mL): minimal Specimens/Packing Specimens Removed joint space. GINGER SHAH MD Feb 25, 2023 16:59
[2023-02-25] MEDS ORDERED: morphine INJ 10 MG/ML 1ML (SYR OR VIAL) IVP ONE (17:00)
[2023-02-25] MEDS ORDERED: fentaNYL INJECTION 100 MCG/2 ML VIAL IVP ONE (17:00)
[2023-02-25] MEDS ORDERED: MEPERIDINE INJ 50 MG/ML VIAL IVP ONE (17:00)
[2023-02-25] MEDS ORDERED: morphine INJ 10 MG/ML 1ML (SYR OR VIAL) ONE (17:14)
[2023-02-25] MEDS ORDERED: FLUC100T PO (18:33)
[2023-02-25] MEDS ORDERED: LNZ600T PO (18:33)
--- NOTE | 2023-02-26 00:50 | OPERATIVE REPORT ---
DATE OF SERVICE: 02/25/2023 ATTENDING PRIMARY CARE PHYSICIAN: Dr. Kuldip Aguayo. PREOPERATIVE DIAGNOSIS: Recurrent complex left elbow abscess. 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 PROCEDURE: Incision and drainage of recurrent complex deep left elbow abscess as well as debridement of devitalized tissue [id number]. SURGEON: Ginger Shah MD TECHNICAL SUPPORT TECHNICIAN: Archie Mascorro APRN ANESTHESIA: General laryngeal mask airway with local. ESTIMATED BLOOD LOSS: Minimal. FINDINGS: Recurrent complex left elbow abscess with septic arthrosis. DISPOSITION: The patient tolerated the procedure well. INDICATIONS: The patient is a 62-year-old female, who first developed pain and swelling in the left elbow approximately 8 weeks ago. This did worsen and she was referred to surgery in a different location underwent an incision and drainage. She was also placed on antibiotics. However, approximately two weeks later, developed a recurrence of redness and swelling and underwent another incision and drainage. She again underwent another round of antibiotics. She states that over time, the left elbow became more swollen and painful. She underwent a recent ultrasound, which did show complex septated abscess approximately 8.5 x 5.5 cm in size. Upon examination, there is swelling of the elbow as well as pain upon palpation. There were no functional deficits of the forearm or hand. DESCRIPTION OF PROCEDURE: The patient was brought to the operating room, laid supine on the table. After adequate IV pain and sedative medications and general laryngeal mask airway intubation, the left upper extremity was prepped and draped in standard surgical fashion. 2% lidocaine with epinephrine was used to anesthetize the overlying skin to the elbow and L-shaped skin incision made using a #15 blade. Subcutaneous tissue was then dissected down using electrocautery. There was a complex abscess within the subcutaneous tissue, which was debrided and broken up using blunt dissection as well as electrocautery. The entire area of this region was approximately 15 x 10 cm. There was also swelling subfascially underneath the muscle of the elbow, which was opened and there was an abscess within the joint capsule consistent with septic arthrosis. This was suctioned out and evacuated as well as possible. Any devitalized tissue within this region was then debrided using a sharp dissecting scissors as well as electrocautery. Good hemostasis was achieved using electrocautery. We then proceeded with copious irrigation of both the deep joint as well as the subcutaneous tissue with 4 liters of sterile saline. The entire open wound was then packed with 1 inch iodoform gauze followed by 4 x 4 gauze followed by Kerlix wrap followed by 2-inch and 4-inch Juan Antonio wrap from the mid hand all the way up to the upper portion of the arm. The patient tolerated the procedure well. We will consult wound care to change the same exact type of dressing every 72 hours. We will also start her on linezolid 600 mg b.i.d. as well as Diflucan 200 mg day 1, then 100 mg daily. If she develops any chronic joint pain or physical deficits then we will refer her to orthopedic surgery. Job ID: [id number] DocumentID: [id number] Dictated Date: 02/25/2023 17:12:01 Machine Hostler Date: 02/26/2023 00:49:00 Dictated By: GINGER SHAH MD MTDD
== END 2023-02-25 19:15 | disposition home or self-care (01) ==
LOC: SDC 12:59
PROVIDERS: ATTEND Surgery
DX: L02.414 Cutaneous abscess of left upper limb (principal); M19.022 Primary osteoarthritis, left elbow
CPT/HCPCS: 82947; 87070; 87075; 87077; 87081; 87186; 87205